=== PATIENT | female | born 1965 | race Caucasian/White ===

== ENCOUNTER → 2017-09-27 11:45 | Outpatient (CLI) | payer OTHER ==
[2016-07-27 16:45] VITALS: BMI 25.8
[~2017-09-27 11:45] MED LIST: BENADRYL A12.5 MG/5 PO; CARDIZEM120 MG PO; CARTIA XT240 MG PO; COLACE100 MG PO; DIFLUCAN200 MG PO; ELIQUIS2.5 MG PO; ESTRACE 0.5 MG0.5 MG PO; GEMFIBROZIL600 MG PO; HYDROCODONE-APA1 TAB PO; MYLANTA LIQUID355 ML PO; NORCO 7.5/325 T1 TA1 PO; NYSTATIN ORAL SU5 ML PO; OXYCODONE HCL5 MG PO; OXYCONTIN10 MG PO; PRELONE15 MG/5 ML PO; PROTONIX40 MG PO; PROZAC40 MG PO; SENOKOT-S TABLE1 TAB PO; SYNTHROID50 MCG PO; TUSSIONEX 5 ML S5 ML PO; TYLENOL 325 MG325 MG PO; XANAX1 MG PO
[2017-09-27 12:25] LABS: BASOPHILS 0.1 % (0-2); EOSINOPHILS 2.5 % (0-7); HEMATOCRIT 42.1 % (36.0-48.0); HEMOGLOBIN 13.8 g/dL (12-16); IMMATURE GRANULOCYTES 0.3 % (0-5); MCH 30.1 pg (26.0-34.0); MCHC 32.8 g/dL (31.0-37.0); MCV 91.9 fL (80.0-100.0); MEAN PLATELET VOLUME 10.2 fL (7.4-10.4); MONOCYTES 6.6 % (2-11); NEUTROPHILS 66.5 % (40-80); RBC 4.58 10x6/uL (4.00-5.40); RDW 13.8 % (11.5-14.5); WBC 7.3 10x3/uL (4.8-10.8)
[2017-09-27 12:27] LABS: PLATELET COUNT 359 10x3/uL (130-400)
[2017-09-27 13:42] LABS: ERYTHROCYTE SEDIMENTATION RATE 15 mm/hr (0-30)
== END | disposition home or self-care (01) ==
LOC: D.LABREF 11:45
PROVIDERS: Orthopaedic Surgery
DX: M25.561 Pain in right knee (principal)